=== PATIENT | female | born 1960 | race Caucasian/White ===

== ENCOUNTER → 2018-01-20 | Outpatient (CLI) | payer OTHER ==
[~2018-01-20] MED LIST: ALB18R INH; CEFU500T50 PO; DUL100/5PT INH; IBUP-56 PO; PHEN1TAB74; PRED-1 PO
== END ==
LOC: LAB 07:41
PROVIDERS: ATTEND Nurse Practitioner Psychiatric/Mental Health
DX: R52 Pain, unspecified (principal)
CPT/HCPCS: 87045; 87177

== ENCOUNTER → 2018-08-07 | Outpatient (CLI) | payer OTHER ==
--- NOTE | 2018-08-07 16:48 | RADIOLOGY IMAGING REPORT ---
FACILITY: [facility] PATIENT NAME: Dilma Pappas : 1960 MR: [id number] V: [id number] EXAM DATE: ORDERING PHYSICIAN: HUNTER LOTT TECHNOLOGIST: Location: [facility] Patient: Dilma Pappas : 1960 Visit/Account:[id number] Date of Sevice: 08/07/2018 THYROID ultrasound HISTORY: Graves' disease COMPARISON: February 03, 2009 FINDINGS: SIZE: Normal. Right lobe: 4.05 x 1.43 x 1.18 cm Left lobe: 4.37 x 1.26 x 1.05 cm Isthmus: 0.26 mm PARENCHYMA: Homogeneous. NODULES: Right lobe: * None discrete. Left lobe: * None discrete. Isthmus: * None discrete. VASCULARITY: Within normal limits. ADDITIONAL FINDINGS: None. IMPRESSION: Unremarkable thyroid ultrasound REFERENCE: 2015 [place] [employer] Management Guidelines for Adult Patients with Thyroid Nodules and D ifferentiated Thyroid Cancer: The [place] [employer] Guidelines Task Force on Thyroid Nodul es and Differentiated Thyroid Cancer. SONOGRAPHIC PATTERNS: * Benign: Purely cystic nodules (no solid component); estimated risk of malignancy <1 percent; no bi opsy recommended. * Very Low Suspicion: Spongiform or partially cystic nodules without any of the sonographic features described in low, intermediate, or high suspicion patterns; estimated risk of malignancy <3 percent; consider FNA at > 2 cm (Observation without FNA is also a reasonable option). * Low Suspicion: Isoechoic or hyperechoic solid nodule, or partially cystic nodule with eccentric so lid areas, without microcalcification, irregular margin or ETE (extra-thyroidal extension), or taller than wide shape; estimated risk of malignancy 5-10 percent; recommend FNA at >1.5 cm. * Intermediate Suspicion: Hypoechoic solid nodule with smooth margins without microcalcifications, E TE (extra-thyroidal extension), or taller than wide shape; estimated risk of malignancy 10-20 percent ; recommend FNA at > 1 cm. * High Suspicion: Solid hypoechoic nodule or solid hypoechoic component of a partially cystic nodule with one or more of the following features: irregular margins (infiltrative, microlobulated), microc alcifications, taller than wide shape, rim calcifications with small extrusive soft tissue component, evidence of ETE (extra-thyroidal extension); estimated risk of malignancy >70-90 percent; recommend FNA at > 1 cm. NOTES: * Although a sonographically suspicious subcentimeter thyroid nodule without evidence of extrathyroi ace extension or sonographically suspicious lymph nodes may be observed with close sonographic follow -up rather than pursuing immediate FNA, patient age and preference may modify decision-making. A > 50% interval increase in nodule volume and/or development of new suspicious sonographic features are felt to be a valid reasons for potential re-aspiration of a nodule previously shown to have benig n FNA cytology. Report Dictated By: Hoda Tobias MD at 08/07/2018 4:42 PM Report E-Signed By: Hoda Tobias MD at 08/07/2018 4:44 PM WSN:[email or web address]
== END ==
LOC: US 07:40
PROVIDERS: ATTEND Nurse Practitioner Psychiatric/Mental Health
DX: R22.1 Localized swelling, mass and lump, neck (principal)
CPT/HCPCS: 76536